=== PATIENT | male | born 1985 | race Caucasian/White ===

== ENCOUNTER 2023-07-05 08:37 | Emergency (ER) | payer BC ==
[~2023-07-05] VITALS: Ht 177.8 cm; Wt 113.4 kg
[2023-07-05] MEDS ORDERED: LISI10TA29 PO (09:01)
[2023-07-05] MEDS ORDERED: METF-867 PO (09:01)
[2023-07-05] MEDS ORDERED: diphenhydrAMINE 50 MG/1 ML VIAL IV ONE (09:15)
[2023-07-05] MEDS ORDERED: METOCLOPRAMIDE HCL 10 MG/2 ML VIAL IV ONE (09:15)
[2023-07-05] MEDS ORDERED: IV NS 1000 ML 1,000 ML IV ONE (09:15)
[2023-07-05] MEDS ORDERED: KETOROLAC TROMETHAMINE 30 MG INJ IVP ONE (09:15)
[2023-07-05] MEDS ORDERED: METOCLOPRAMIDE HCL 10 MG/2 ML VIAL ONE (09:17)
[2023-07-05] MEDS ORDERED: KETOROLAC TROMETHAMINE 30 MG INJ ONE (09:17)
[2023-07-05] MEDS ORDERED: diphenhydrAMINE 50 MG/1 ML VIAL ONE (09:17)
[2023-07-05] MEDS ORDERED: METO-295 PO (09:26)
[2023-07-05] MEDS ORDERED: DIPH25CA83 PO (09:26)
[2023-07-05] MEDS ORDERED: NAPR-1164 PO (09:26)
[2023-07-05 11:08] VITALS: BP 139/79; O2SAT 96
== END 2023-07-05 11:15 | disposition home or self-care (01) ==
LOC: ER 08:42
DX: G43.909 Migraine, unspecified, not intractable, without status migrainosus (principal); I10 Essential (primary) hypertension; E11.9 Type 2 diabetes mellitus without complications; E66.9 Obesity, unspecified; Z68.35 Body mass index [BMI] 35.0-35.9, adult; Z79.1 Long term (current) use of non-steroidal anti-inflammatories (NSAID); Z79.84 Long term (current) use of oral hypoglycemic drugs; Z79.899 Other long term (current) drug therapy
CPT/HCPCS: 99284; 96374; 96375; 96361; J1200; J1885; J2765; J7040; A4606; A4663